=== PATIENT | male | born 1995 | race Caucasian/White ===

== ENCOUNTER 2017-12-06 19:53 | Emergency (ER) | payer OTHER ==
[~2017-12-06] VITALS: Ht 180.3 cm; Wt 76.4 kg
[2017-12-06 19:55] VITALS: TEMP 36.4; Ht 180.3 cm; Wt 76.4 kg
--- NOTE | 2017-12-06 21:13 | DIAGNOSTIC IMAGING REPORT ---
TESTICULAR ULTRASOUND CLINICAL HISTORY: Right testicular pain COMPARISON STUDY: July 06, 2013 FINDINGS: The right testis measures 33 x 52 x 22 mm. The left testis measures 29 51 x 25 mm. No intratesticular masses are visualized. There is no evidence of testicular torsion. There is a complex 5 mm right epididymal nodule/cyst. IMPRESSION: 1. No evidence of intratesticular mass 2. No evidence of testicular torsion Electronically signed by: Bi Rossi M.D. 12/06/2017 9:11 PM Dictated Date/Time: 12/06/2017 9:09 PM
--- NOTE | 2017-12-06 21:22 | EMERGENCY ROOM VISIT NOTE ---
History Report prepared by Chinmay: Radu Pickett Under the Supervision of: Dr. Saad Ross D.O. First contact with patient: 19:59 Chief Complaint: TESTICULAR PAIN Stated Complaint: PAIN IN TESTICLE Nursing Triage Summary: PT has right testicular pain started ealier today, PT was just on a very long flight. PT has HX of torsion was SX repaired. PT denies any other symptoms states "I just have some pain, it is not very bad" History of Present Illness The patient is a 22 year old male who presents to the Emergency Room with complaints of intermittent pain in his right testicle that began this morning. He describes the pain as mild. Patient states the pain is exacerbated with pressure and movement. Patient denies fevers, unusual discharge, and urinary symptoms. Patient has a history of a testicular torsion in 2012. He adds that he had surgery done to repair the torsion. He states his current symptoms are not as bad as his last torsion. Patient does not recall what side the past torsion was on. Source of History: patient Onset: This morning Position: pelvis (Right scrotum) Symptom Intensity: mild Timing: intermittent Modifying Factors (Worsening): movement, other (Pressure) Associated Symptoms: No fevers, No urinary symptoms Review of Systems See HPI for pertinent positives & negatives. A total of 10 systems reviewed and were otherwise negative. Past Medical & Surgical Medical Problems: (1) Testicular torsion Family History Asthma Lung disease Social History Smoking Status: Never Smoker Alcohol Use: none Marital Status: single Housing Status: lives with family Occupation Status: student Current/Historical Medications No Active Prescriptions or Reported Meds Allergies Coded Allergies: Louie (Verified Allergy, Intermediate, FACIAL SWELLING, 12/06/17) Sulfa Antibiotics (Unverified Allergy, Mild, unknown, 12/06/17) Uncoded Allergies: SEASONAL (Allergy, Unknown, 01/13/03) Physical Exam Vital Signs Date Time Temp Pulse Resp B/P (MAP) Pulse Ox O2 Delivery O2 Flow Rate FiO2 12/06/17 19:55 36.4 68 16 123/75 99 Room Air Physical Exam CONSTITUTIONAL/VITAL SIGNS: Reviewed / noted above. GENERAL: Non-toxic in appearance. INTEGUMENTARY: Warm, dry, and [place]. HEAD: Normocephalic. EYES: without scleral icterus or trauma. ENT/OROPHARYNX: clear and moist. LYMPHADENOPATHY/NECK: Is supple without lymphadenopathy or meningismus. RESPIRATORY: Lungs clear and equal. CARDIOVASCULAR: Regular rate and rhythm. GI/ABDOMEN: Soft and nontender. No organomegaly or pulsatile mass. No rebound or guarding. Normal bowel sounds. : Mild tenderness to palpitation of right scrotum area posteriorly. No appreciated hernias. EXTREMITIES: Warm and well perfused. BACK: No CVA tenderness. NEUROLOGICAL: Intact without focal deficits. PSYCHIATRIC: normal affect. MUSCULOSKELETAL: Normally developed with good muscle tone. Medical Decision & Procedures ER Provider Diagnostic Interpretation: Radiology results as stated below per my review and radiologist interpretation: TESTICULAR ULTRASOUND CLINICAL HISTORY: Right testicular pain COMPARISON STUDY: July 06, 2013 FINDINGS: The right testis measures 33 x 52 x 22 mm. The left testis measures 29 51 x 25 mm. No intratesticular masses are visualized. There is no evidence of testicular torsion. There is a complex 5 mm right epididymal nodule/cyst. IMPRESSION: 1. No evidence of intratesticular mass 2. No evidence of testicular torsion Electronically signed by: Bi Rossi M.D. 12/06/2017 9:11 PM Laboratory Results Test 12/06/17 20:13 Urine Color YELLOW Urine Appearance CLOUDY (CLEAR) Urine pH 7.0 (4.5-7.5) Urine Specific [place] 1.026 (1.000-1.030) Urine Protein NEG (NEG) Urine Glucose (UA) NEG (NEG) Urine Ketones NEG (NEG) Urine Occult Blood NEG (NEG) Urine Nitrite NEG (NEG) Urine Bilirubin NEG (NEG) Urine Urobilinogen NEG (NEG) Urine Leukocyte Esterase NEG (NEG) Urine WBC (Auto) 1-5 /hpf (0-5) Urine RBC (Auto) 0-4 /hpf (0-4) Urine Hyaline Casts (Auto) 1-5 /lpf (0-5) Urine Epithelial Cells (Auto) 5-10 /lpf (0-5) Urine Bacteria (Auto) NEG (NEG) Laboratory results as stated above per my review. ED Course 2009: Previous medical records were reviewed. The patient was evaluated in room B5. A complete history and physical examination was performed. 2121: On reevaluation, the patient is resting comfortably. I discussed the results and findings with the patient. He verbalized agreement of the treatment plan. He was discharged home. Medical Decision Differential diagnosis: Etiologies such as torsion, mass, infection, hernia, hydrocele, epididymitis, trauma, intra-abdominal process, as well as others were entertained. This is a 22-year-old male who presents to the ED with a chief complaint of right testicular discomfort. He states that it is mild discomfort in his been there throughout the day since the morning. He denies any fevers urinary symptoms. The patient reports history of torsion in 2012. He cannot recall the side. He states that was surgically repaired. He did not have the testicle removed. The patient has no other complaints. Denies any abdominal discomfort or flank discomfort. No nausea or vomiting. His exam reveals some tenderness to palpation of the posterior aspect of the right scrotum. There is no obvious erythema or swelling. He denies penile discharge. He did not need anything for pain. Urinalysis did not show infection. Ultrasound reveals a 5 mm nodule or cyst near the right testicle otherwise no evidence of torsion or other acute abnormality. The patient was told the results. He was told to use [id number] medication for his discomfort. He is felt to be stable for discharge. Medication Reconcilliation Current Medication List: was personally reviewed by me Blood Pressure Screening Patient's blood pressure: Normal blood pressure Blood pressure disposition: Did not require urgent referral Impression Primary Impression: Testicular pain, right Scribe Attestation The scribe's documentation has been prepared under my direction and personally reviewed by me in its entirety. I confirm that the note above accurately reflects all work, treatment, procedures, and medical decision making performed by me. Departure Information Dispostion Home / Self-Care Prescriptions No Active Prescriptions or Reported Meds Referrals No Doctor, Assigned (PCP) Forms HOME CARE DOCUMENTATION FORM, IMPORTANT VISIT INFORMATION, WORK / SCHOOL INSTRUCTIONS Patient Instructions My [facility] Additional Instructions There is no evidence of testicular torsion or mass. There was a small 5 mm nodule or cyst in the area the right testicle. Anticipate gradual improvement of symptoms over the next several days. If symptoms persist, see your family doctor return for further evaluation.
[2017-12-06 21:42] VITALS: BP 109/57; PULSE 75; O2SAT 98
== END 2017-12-06 21:43 | disposition home or self-care (01) ==
LOC: C.EDB 19:54
DX: N50.811 Right testicular pain (principal); Z88.2 Allergy status to sulfonamides; Z91.018 Allergy to other foods; Z82.5 Family history of asthma and other chronic lower respiratory diseases